=== PATIENT | female | born 1970 | race Caucasian/White ===

== ENCOUNTER 2018-11-19 17:45 | Observation (INO) | payer BC ==
[2018-11-19] MEDS ORDERED: Acetaminophen 325 MG Tab PO PRN (18:18)
[2018-11-19] MEDS ORDERED: Ondansetron 4 MG Tab.DIS PO PRN (18:18)
[2018-11-19] MEDS ORDERED: Sodium Chloride 0.9% 10 ML Syringe FLUSH PRN (18:18)
[2018-11-19] MEDS ORDERED: Ondansetron 4 MG/2 ML SDV IV PRN (18:18)
[2018-11-19] MEDS: Lactated Ringers 1,000 ML IV SCH (18:53)
[2018-11-19] MEDS: Pantoprazole 40 MG Vial IVPUSH SCH (18:55)
[2018-11-19] MEDS: fentaNYL 100 MCG/2 ML SDV IVPUSH PRN (18:58)
[2018-11-19] MEDS: Enoxaparin 40 MG/0.4 ML Syringe SUBCUT SCH (19:46)
[2018-11-19] MEDS: Acetaminophen/HYDROcodone 325-5 MG Tab PO PRN (19:52)
[2018-11-20] MEDS: fentaNYL 100 MCG/2 ML SDV IVPUSH PRN ×2 (02:09→09:19)
[2018-11-20] MEDS: Lactated Ringers 1,000 ML IV SCH (02:09)
[2018-11-20] MEDS: Acetaminophen/HYDROcodone 325-5 MG Tab PO PRN ×2 (06:35→12:09)
--- NOTE | 2018-11-20 11:34 | PCM.PN ---
- General Info Date of Service: 11/20/18 Admission Dx/Problem (Free Text): RUQ abd pain Subjective Update: in with RUQ abd pain for the past several days, nausea, has not had vomiting, last BM was 2 days ago and was brown, no black stools or blood in stools, no fever r chills, no cp or sob - Review of Systems General: Reports: No Symptoms. Denies: Fever HEENT: Reports: No Symptoms Pulmonary: Reports: No Symptoms. Denies: Shortness of Breath Cardiovascular: Reports: No Symptoms. Denies: Chest Pain Gastrointestinal: Reports: No Symptoms, Abdominal Pain, Nausea. Denies: Diarrhea, Difficulty Swallowing, Vomiting Genitourinary: Reports: No Symptoms Musculoskeletal: Reports: No Symptoms Skin: Reports: No Symptoms Neurological: Reports: No Symptoms Psychiatric: Reports: No Symptoms - Patient Data Vitals - Most Recent: Last Vital Signs Temp 36.1 C 11/20/18 07:48 Pulse 86 11/20/18 07:48 Resp 16 11/20/18 07:48 BP 113/63 11/20/18 07:48 Pulse Ox 97 11/20/18 07:48 Weight - Most Recent: 54.703 kg I&O - Last 24 Hours: Intake & Output 11/19/18 11/20/18 11/20/18 22:59 06:59 14:59 Intake Total 2508 Output Total 1700 Balance 808 Lab Results Last 24 Hours: Laboratory Results - last 24 hr 11/20/18 11/20/18 Range/Units 05:11 05:11 WBC 4.1 L (5.0-10.0) 10^3/uL RBC 3.53 L (4.00-5.50) 10^6/uL Hgb 9.8 L (12.0-16.0) g/dL Hct 30.5 L (37.0-47.0) % MCV 86.4 (82.0-94.0) fL MCH 27.8 (27.0-32.0) pg MCHC 32.1 L (33.0-38.0) g/dL RDW Coeff of Edu 15.7 H (11.0-15.0) % Plt Count 312 (150-400) 10^3/uL Neut % (Auto) 36.1 (35-85) % Lymph % (Auto) 41.6 (10-55) % [place] % (Auto) 9.4 (0-16) % Eos % (Auto) 10.7 H (0-5) % Baso % (Auto) 2.2 (0-3) % Neut # (Auto) 1.49 L (1.80-7.00) 10^3/uL Lymph # (Auto) 1.72 (1.00-4.80) 10^3/uL [place] # (Auto) 0.39 (0.00-0.80) 10^3/uL Eos # (Auto) 0.44 (0.00-0.45) 10^3/uL Baso # (Auto) 0.09 10^3/uL Sodium 140 (136-145) mEq/L Potassium 4.0 (3.5-5.0) mEq/L Chloride 106 (98-106) mEq/L Carbon Dioxide 29 (21-32) mmol/L BUN 4 L D (7-18) mg/dL Creatinine 0.6 (0.6-1.0) mg/dL Est Cr Clr Drug Dosing 89.70 mL/min Estimated GFR (MDRD) > 60 (>=60) mL/min Glucose 87 (75-99) mg/dL Calcium 8.5 (8.4-10.1) mg/dL C-Reactive Protein < 0.2 L (0.2-0.8) mg/dL Med Orders - Current: Current Medications Acetaminophen (Tylenol) 650 mg PO Q4H PRN PRN Reason: Pain (Mild 1-3)/fever Hydrocodone Bitart/Acetaminophen ([place] 325-5 Mg) 1 tab PO Q4H PRN PRN Reason: Pain (moderate 4-6) Last Admin: 11/20/18 06:35 Dose: 1 tab Enoxaparin Sodium (Lovenox) 40 mg SUBCUT Q24H [facility] Last Admin: 11/19/18 19:46 Dose: 40 mg Fentanyl (Sublimaze) 25 mcg IVPUSH Q2H PRN PRN Reason: Abdominal Pain Last Admin: 11/20/18 09:19 Dose: 25 mcg Lactated Ringer's (Ringers, Lactated) 1,000 mls @ 125 mls/hr IV ASDIRECTED [facility] Last Admin: 11/20/18 02:09 Dose: 125 mls/hr Ondansetron HCl (Zofran Odt) 4 mg PO Q4H PRN PRN Reason: nausea, able to take PO Last Admin: 11/19/18 19:52 Dose: 4 mg Ondansetron HCl (Zofran) 4 mg IV Q4H PRN PRN Reason: Nausea/Vomiting Pantoprazole Sodium (Protonix Iv) 40 mg IVPUSH Q24H [facility] Last Admin: 11/19/18 18:55 Dose: 40 mg Sodium Chloride (Saline Flush) 10 ml FLUSH ASDIRECTED PRN PRN Reason: Keep Vein Open - Exam General: Alert, Oriented, Cooperative HEENT: Pupils Equal Neck: Supple, Trachea Midline Lungs: Clear to Auscultation, Normal Respiratory Effort Cardiovascular: Regular Rate, Regular Rhythm, No Murmurs GI/Abdominal Exam: Normal Bowel Sounds, Soft, No Distention, Tender (RUQ and epigastric area tendernes with palpation ). No: Non-Tender, Distended, Guarding , Rigid Back Exam: Normal Inspection, Full Range of Motion Extremities: Normal Inspection, Normal Range of Motion, Non-Tender, No Pedal Edema, Normal Capillary Refill Peripheral Pulses: 2+: Radial (L), Radial (R) Skin: Warm, Dry, Intact Wound/Incisions: Healing Well Neurological: No New Focal Deficit Psy/Mental Status: Alert, Normal Affect, Normal Mood - Problem List & Annotations (1) Abdominal pain SNOMED Code(s): 12693324 Code(s): R10.9 - UNSPECIFIED ABDOMINAL PAIN Status: Acute Priority: Medium Current Visit: Yes Qualifiers: Abdominal location: epigastric Qualified Code(s): R10.13 - Epigastric pain - Problem List Review Problem List Initiated/Reviewed/Updated: Yes - My Orders Last 24 Hours: My Active Orders 11/20/18 11:31 CBC WITH AUTO DIFF [HEME] Routine COMPREHENSIVE METABOLIC PN,CMP [CHEM] Routine CRP, HIGH SENSITIVITY [REF] Urgent LIPASE [CHEM] Routine - Plan Plan:: will add Reglan 10mg TID and Bentyl 10mg tid prn to the pt, her repeat blood work including lipase and crp were neg, I suspect the pt can have some gastritis , will continue IV Protonix, advance to full liquids and plan on DC in am, will refer for possible EGD this week on DC. to note, CT abd and pelvis yesterday read by the radiologist as neg, see the report for details.
[2018-11-20 11:44] LABS: CHLORIDE,CL 106 mEq/L (98-106); SODIUM,NA 140 mEq/L (136-145)
[2018-11-20] MEDS ORDERED: Dicyclomine 10 MG Cap PO PRN (13:22)
[2018-11-20] MEDS: Metoclopramide 10 MG Tab PO SCH ×2 (14:36→19:44)
[2018-11-20] MEDS: Pantoprazole 40 MG Vial IVPUSH SCH (18:11)
[2018-11-20] MEDS: Enoxaparin 40 MG/0.4 ML Syringe SUBCUT SCH (19:44)
[2018-11-21] MEDS: Acetaminophen/HYDROcodone 325-5 MG Tab PO PRN (06:36)
[2018-11-21] MEDS: Metoclopramide 10 MG Tab PO SCH (07:53)
--- NOTE | 2018-11-21 08:58 | PCM.PN ---
- General Info Date of Service: 11/21/18 Admission Dx/Problem (Free Text): RUQ abd pain Subjective Update: in with RUQ abd pain for the past several days, nausea, has not had vomiting, last BM was 2 days ago and was brown, no black stools or blood in stools, no fever r chills, no cp or sob Functional Status: Reports: Pain Controlled - Review of Systems General: Reports: No Symptoms. Denies: Fever, Chills HEENT: Reports: No Symptoms Pulmonary: Reports: No Symptoms Cardiovascular: Reports: No Symptoms Gastrointestinal: Reports: No Symptoms, Vomiting. Denies: Nausea Genitourinary: Reports: No Symptoms Musculoskeletal: Reports: No Symptoms Skin: Reports: No Symptoms Neurological: Reports: No Symptoms Psychiatric: Reports: No Symptoms - Patient Data Vitals - Most Recent: Last Vital Signs Temp 37.0 C 11/21/18 08:00 Pulse 83 11/21/18 08:00 Resp 16 11/21/18 08:00 BP 88/56 L 11/21/18 08:00 Pulse Ox 96 11/21/18 08:00 Weight - Most Recent: 54.703 kg Lab Results Last 24 Hours: Laboratory Results - last 24 hr 11/20/18 11/20/18 Range/Units 05:11 11:31 Sodium Cancelled 140 Potassium Cancelled 4.0 Chloride Cancelled 106 Carbon Dioxide Cancelled 29 BUN Cancelled 4 L D Creatinine Cancelled 0.6 Est Cr Clr Drug Dosing Cancelled 89.70 Estimated GFR (MDRD) Cancelled > 60 Glucose Cancelled 87 Calcium Cancelled 8.5 Total Bilirubin 0.9 (0.0-1.0) mg/dL AST 22 (15-37) U/L ALT 21 (12-78) U/L Alkaline Phosphatase 43 L (46-116) U/L Total Protein 6.3 L (6.4-8.2) g/dL Albumin 3.2 L (3.4-5.0) g/dL Lipase 124 (73-393) U/L Med Orders - Current: Current Medications Acetaminophen (Tylenol) 650 mg PO Q4H PRN PRN Reason: Pain (Mild 1-3)/fever Hydrocodone Bitart/Acetaminophen ([place] 325-5 Mg) 1 tab PO Q4H PRN PRN Reason: Pain (moderate 4-6) Last Admin: 11/21/18 06:36 Dose: 1 tab Dicyclomine HCl (Bentyl) 10 mg PO QIDACANDBED PRN PRN Reason: Pain Last Admin: 11/20/18 19:45 Dose: 10 mg Enoxaparin Sodium (Lovenox) 40 mg SUBCUT Q24H [facility] Last Admin: 11/20/18 19:44 Dose: 40 mg Fentanyl (Sublimaze) 25 mcg IVPUSH Q2H PRN PRN Reason: Abdominal Pain Last Admin: 11/20/18 09:19 Dose: 25 mcg Metoclopramide HCl (Reglan) 10 mg PO TID [facility] Last Admin: 11/21/18 07:53 Dose: 10 mg Ondansetron HCl (Zofran Odt) 4 mg PO Q4H PRN PRN Reason: nausea, able to take PO Last Admin: 11/19/18 19:52 Dose: 4 mg Ondansetron HCl (Zofran) 4 mg IV Q4H PRN PRN Reason: Nausea/Vomiting Pantoprazole Sodium (Protonix Iv) 40 mg IVPUSH Q24H [facility] Last Admin: 11/20/18 18:11 Dose: 40 mg Sodium Chloride (Saline Flush) 10 ml FLUSH ASDIRECTED PRN PRN Reason: Keep Vein Open Discontinued Medications Lactated Ringer's (Ringers, Lactated) 1,000 mls @ 125 mls/hr IV ASDIRECTED [facility] Last Admin: 11/20/18 02:09 Dose: 125 mls/hr - Exam General: Alert, Oriented, Cooperative Neck: Supple, Trachea Midline Lungs: Clear to Auscultation, Normal Respiratory Effort Cardiovascular: Regular Rate, Regular Rhythm GI/Abdominal Exam: Normal Bowel Sounds, Soft, Non-Tender, No Distention Back Exam: Normal Inspection, Full Range of Motion. No: CVA Tenderness (L), CVA Tenderness (R) Extremities: Normal Inspection, Normal Range of Motion, Non-Tender, Normal Capillary Refill Peripheral Pulses: 2+: Radial (L), Radial (R) Skin: Warm, Dry, Intact Neurological: No New Focal Deficit Psy/Mental Status: Alert, Normal Affect, Normal Mood - Problem List & Annotations (1) Abdominal pain SNOMED Code(s): 62139779 Code(s): R10.9 - UNSPECIFIED ABDOMINAL PAIN Status: Acute Priority: Medium Current Visit: Yes Qualifiers: Abdominal location: epigastric Qualified Code(s): R10.13 - Epigastric pain - Problem List Review Problem List Initiated/Reviewed/Updated: Yes - My Orders Last 24 Hours: My Active Orders 11/20/18 11:31 CBC WITH AUTO DIFF [HEME] Routine 11/20/18 13:22 Dicyclomine [Bentyl] 10 mg PO QIDACANDBED PRN 11/20/18 14:00 Metoclopramide [Reglan] 10 mg PO TID 11/20/18 Dinner Full Liquid Diet [DIET] - Plan Plan:: will add Reglan 10mg TID and Bentyl 10mg tid prn to the pt, her repeat blood work including lipase and crp were neg, I suspect the pt can have some gastritis , will continue IV Protonix, advance to full liquids and plan on DC in am, will refer for possible EGD this week on DC. to note, CT abd and pelvis yesterday read by the radiologist as neg, see the report for details. 11/21/2018 0845 pt feeling better, will dc home, will have her eat a bland diet, will give bentyl, zofran and omeprazole, will have her f./u with pcp in am for further evaluation and testing
[2018-11-21] MEDS ORDERED: Dicyclomine 10 MG Cap PO ONE (09:56)
[2018-11-21] MEDS ORDERED: Take Home: Orphenadrine 100 MG Tab.ER, 4 Tab Pack PO ONE (10:01)
[2018-11-21] MEDS ORDERED: Pantoprazole 40 MG Tab.CR PO STA (10:02)
[2018-11-21] MEDS ORDERED: Take Home: Ondansetron 4 MG Tab.DIS, 2 Tab Pack PO ONE (10:18)
[2018-11-21] MEDS: Take Home: Ondansetron 4 MG Tab.DIS, 2 Tab Pack ONE ×2 (10:20→10:28)
[2018-11-21] MEDS ORDERED: Ondansetron 4 MG Tab.DIS PO ONE (10:25)
== END 2018-11-21 10:26 | disposition home or self-care (01) ==
LOC: UNDOADMOB 17:45 → CC.MS 17:45 → UNDODISOB 11-21 10:26
PROVIDERS: ADMIT Physician Assistant Medical; ATTEND Physician Assistant Medical
DX: R10.11 Right upper quadrant pain (principal); R11.0 Nausea; R19.7 Diarrhea, unspecified; J45.909 Unspecified asthma, uncomplicated; Z90.49 Acquired absence of other specified parts of digestive tract; Z88.0 Allergy status to penicillin; Z88.2 Allergy status to sulfonamides; Z88.1 Allergy status to other antibiotic agents; Z79.899 Other long term (current) drug therapy; Z79.51 Long term (current) use of inhaled steroids
CPT/HCPCS: 36415; 80053; 83690; 85025; 86140; A9270; C9113; J1650; J3010; J7120; 96361; 96372; 96374; 96375; 96376; G0378

== ENCOUNTER → 2018-11-26 | Day surgery (SDC) | payer BC ==
[~2018-11-26] MED LIST: Propofol 200 MG/20 ML SDV IV ONE
[2018-11-26] MEDS: Lactated Ringers 1,000 ML IV SCH (11:28)
--- NOTE | 2018-11-26 12:46 | OR ---
DATE OF OPERATION: 11/26/2018 PREOPERATIVE DIAGNOSIS: EPIGASTRIC PAIN. POSTOPERATIVE DIAGNOSIS: EPIGASTRIC PAIN. SURGEON: Eduardo Atkinson MD PROCEDURE: DIAGNOSTIC EGD WITH BIOPSIES X2, ALIE. ANESTHESIA: MAC via [employer]AR [employer]OVOL[employer] DESIGNER. COMPLICATIONS: None. SPECIMEN: 1. Duodenal bulb biopsy x1. 2. Fundal biopsy x1. 3. Antral ALIE. FINDINGS: 1. Full-length EGD. 2. Small hiatal hernia with GERD. No esophagitis, stricturing, or Terrell's changes. 3. Minimal focal fundal gastritis. No ulcerations. RECOMMENDATIONS: The patient is apparently doing better on proton pump therapy via her primary doctor. We will continue to monitor and wait for biopsy reports. INDICATIONS: The patient was hospitalized with some epigastric pain. She was ultimately discharged home feeling better and sent for a diagnostic EGD. DESCRIPTION OF PROCEDURE: The patient was prepped and draped, placed in the left lateral decubitus position. A lubricated Olympus gastroscope was inserted over a bit, advanced to cricopharyngeus area, and easily intubated into the esophagus. The esophageal lining was benign in its entire course. The Z-line was crisp and sharp around 38 to 39 cm. There was a small hiatal hernia present with minimal spontaneous GERD. There was no distal esophagitis, stricturing, ulceration, or Terrell's changes. The scope was advanced into the stomach through the pylorus and into the second portion of the duodenum. This and the duodenal bulb were for the most part benign. The patient does have a little bit of villous atrophy. We did do a biopsy of the duodenal bulb. The scope was brought back into the stomach and retroflexed. The upper fundus and cardia were completely unremarkable. Near the distal portion of the fundus, the patient had 1 small area of gastritis. We did do a biopsy. There was no erosion or ulcerations. The antrum itself looked completely normal. CLOtest was obtained. Air was then suctioned from the stomach and the scope removed without complication. KENYATTA/JOSE /[id number]
== END ==
LOC: CC.SDS 11:05
PROVIDERS: ATTEND Family Medicine
DX: K21.9 Gastro-esophageal reflux disease without esophagitis (principal); K44.9 Diaphragmatic hernia without obstruction or gangrene; K31.89 Other diseases of stomach and duodenum; J45.909 Unspecified asthma, uncomplicated; Z88.0 Allergy status to penicillin; Z88.1 Allergy status to other antibiotic agents; Z88.2 Allergy status to sulfonamides; Z87.891 Personal history of nicotine dependence; Z79.899 Other long term (current) drug therapy
CPT/HCPCS: 36415; 84703; 87081; J2704; J7120

== ENCOUNTER 2023-04-05 17:06 | Emergency (ER) | payer BC ==
[2023-04-05 17:33] LABS: APPEARANCE,URINE CLEAR (CLEAR); BILIRUBIN,URINE NEGATIVE (NEGATIVE); COLOR,URINE YELLOW (YELLOW); GLUCOSE,URINE NEGATIVE (NEGATIVE); KETONES,URINE 15 mg/dL (NEGATIVE); LEUKOCYTE ESTERASE,URINE SMALL (NEGATIVE); NITRITE,URINE NEGATIVE (NEGATIVE); OCCULT BLOOD,URINE NEGATIVE (NEGATIVE); PROTEIN,URINE NEGATIVE (NEGATIVE); UROBILINOGEN,URINE 0.2 EU/dL (0.2-1.0)
[2023-04-05 17:42] LABS: BASOPHILS ABSOLUTE AUTO 0.08 10^3/uL (0.00-0.50); BASOPHILS PERCENT AUTO 1.3 % (0-1); EOSINOPHILS ABSOLUTE AUTO 0.75 10^3/uL (0.00-1.50); EOSINOPHILS PERCENT AUTO 11.9 % (0-6); HEMATOCRIT 37.7 % (37.0-47.0); HEMOGLOBIN 12.9 g/dL (12.0-16.0); LYMPHOCYTES ABSOLUTE AUTO 2.08 10^3/uL (0.60-5.00); MEAN CORPUSCULAR HGB CONC 34.2 g/dL (32.0-36.0); MEAN CORPUSCULAR VOLUME 93.5 fL (83.0-97.0); MONOCYTES ABSOLUTE AUTO 0.54 10^3/uL (0.00-1.50); MONOCYTES PERCENT AUTO 8.6 % (0-10); NEUTROPHILS ABSOLUTE AUTO 2.86 x10^3/uL (1.80-8.00); NEUTROPHILS PERCENT AUTO 45.2 % (41-71); PLATELET COUNT,PLT 225 10^3/uL (150-400); RED BLOOD CELL COUNT 4.03 x10^6/uL (4.00-5.50); WHITE BLOOD CELL COUNT,WBC 6.3 10^3/uL (4.0-11.0)
[2023-04-05] MEDS ORDERED: Sodium Chloride 0.9% 10 ML Syringe FLUSH PRN (17:44)
[2023-04-05 17:48] LABS: BACTERIA,URINE FEW /HPF (NOT SEEN); EPITHELIAL CELLS,URINE FEW /HPF (NOT SEEN); MUCUS,URINE MANY /HPF (NOT SEEN); RBC,URINE 0-5 /HPF (0-5)
[2023-04-05 18:01] LABS: ALANINE AMINOTRANSFERASE,ALT 20 U/L (12-78); ALBUMIN 3.6 g/dL (3.4-5.0); ALKALINE PHOSPHATASE 61 U/L (46-116); ASPARTATE AMNIOTRANSFERASE,AST 21 U/L (15-37); BILIRUBIN TOTAL 0.8 mg/dL (0.0-1.0); BLOOD UREA NITROGEN,BUN 12 mg/dL (7-18); C-REACTIVE PROTEIN < 0.50 mg/dL (<=0.50); CALCIUM 9.3 mg/dL (8.4-10.1); CARBON DIOXIDE,CO2 27 mmol/L (21-32); CHLORIDE,CL 102 mEq/L (98-106); CREATININE 0.7 mg/dL (0.6-1.0); ESTIMATED GFR 103 mL/min (>=60); GLUCOSE RANDOM 107 mg/dL (75-99); POTASSIUM,K 3.5 mEq/L (3.5-5.0); PROTEIN TOTAL,TP 7.2 g/dL (6.4-8.2); SODIUM,NA 138 mEq/L (136-145)
[2023-04-05] MEDS ORDERED: Take Home: Nitrofurantoin Monohydrate/Macrocrystalline 100 MG, 6 Cap Pack PO ONE (18:55)
== END 2023-04-05 19:15 | disposition home or self-care (01) ==
LOC: CC.ED 17:06
DX: N30.00 Acute cystitis without hematuria (principal); Z88.0 Allergy status to penicillin; Z88.1 Allergy status to other antibiotic agents; Z88.2 Allergy status to sulfonamides
CPT/HCPCS: 36415; 74176; 80053; 81001; 85025; 86140; 87635; 87804; 99284; A9270; U0002